=== PATIENT | male | born 1970 | race Caucasian/White ===

== ENCOUNTER 2022-04-07 07:59 | Emergency (ER) | payer OTHER ==
[2022-04-07 08:48] LABS: BASOPHIL 0.9 % (0-2); EOSINOPHIL 0.8 % (0-5); HCT 45.1 % (42.0-52.0); LYMPHOCYTE 19.3 % (15-48); MCH 29.2 pg (25.0-31.0); MCHC 33.3 g/dL (32.0-36.0); MCV 87.9 fL (78.0-100.0); MONOCYTE 5.9 % (0-12); MPV 9.2 fL (6.0-9.5); NRBC 0; PLT 327 K/uL (150-400); RBC 5.13 M/uL (4.70-6.00); RDW 12.4 % (11.5-14.0); WBC 7.5 K/uL (4.0-10.5)
[2022-04-07] MEDS ORDERED: FLOMAX 0.4 MG0.4 MG PO (09:08)
[2022-04-07] MEDS ORDERED: NORCO 5-325 TA1 EACH PO (09:08)
[2022-04-07] MEDS ORDERED: ONDANSETRON ODT4 MG PO (09:08)
[2022-04-07] MEDS ORDERED: NAPROXEN500 MG PO (09:08)
[2022-04-07 09:13] LABS: ALBUMIN 4.1 g/dL (3.4-5.0); BILIRUBIN - TOTAL 0.3 mg/dL (0.2-1.0); BUN/CREAT RATIO (CALC) 20.8 RATIO; CREATININE 1.06 mg/dL (0.67-1.17); GLOBULIN (CALCULATION) 3.1 g/dL; POTASSIUM 4.1 mmol/L (3.5-5.1); TOTAL PROTEIN 7.2 g/dL (6.4-8.2)
== END 2022-04-07 10:45 | disposition home or self-care (01) ==
LOC: FER 07:59
PROVIDERS: Emergency Medicine
DX: N13.2 Hydronephrosis with renal and ureteral calculous obstruction (principal); N40.0 Benign prostatic hyperplasia without lower urinary tract symptoms; Z28.310 Unvaccinated for COVID-19
CPT/HCPCS: 36415; 80053; 85025; J1170; J1885; J2405

== ENCOUNTER 2022-04-08 07:04 | Emergency (ER) | payer OTHER ==
[~2022-04-08 07:04] MED LIST: FLOMAX 0.4 MG0.4 MG PO; NAPROXEN500 MG PO; NORCO 5-325 TA1 EACH PO; ONDANSETRON ODT4 MG PO
[2022-04-08 08:48] LABS: BILIRUBIN NEGATIVE (NEGATIVE); BLOOD NEGATIVE Ery/uL (NEGATIVE); CLARITY CLEAR (CLEAR); COLOR YELLOW (YELLOW); GLUCOSE (U) NORMAL (NORMAL); LEUKOCYTES NEGATIVE Leu/uL (NEGATIVE); NITRITE NEGATIVE (NEGATIVE); PROTEIN NEGATIVE (NEGATIVE); SPECIFIC GRAVITY 1.025 (1.001-1.030); UROBILINOGEN 0.2 mg/dL (0.2-1.0)
[2022-04-08 11:28] LABS: BACTERIA TRACE; SQUAMOUS EPITHELIAL CELLS RARE; URINARY WBC RARE
== END 2022-04-08 11:24 | disposition home or self-care (01) ==
LOC: FER 07:04
PROVIDERS: Emergency Medicine
DX: N13.2 Hydronephrosis with renal and ureteral calculous obstruction (principal)
CPT/HCPCS: 81001